=== PATIENT | male | born 1970 ===

== ENCOUNTER 2018-12-04 09:03 | Inpatient (IN) | payer OTHER ==
[2018-12-04] MEDS ORDERED: EPINEPHrine 1 MG/10 ML Abboject SYRINGE ONE (09:15)
[2018-12-04] MEDS ORDERED: Norepinephrine 4 MG/4 ML VIAL ONE ×2 (09:15)
[2018-12-04] MEDS ORDERED: EPINEPHrine 1 MG/ML AMP ONE (09:15)
--- NOTE | 2018-12-04 09:18 | CT ---
CT HEAD WITHOUT CONTRAST: HISTORY: Seizure. COMPARISON: None. FINDINGS: Hemorrhage: Extensive subarachnoid blood along with blood in the ventricular system. Small amount o f subdural blood along the left and right tentorium. There appears to be a 2.8 x 3.5 cm parenchymal hemorrhage centered along the midline of the cerebellum, with hematoma involving both cer ebellar hemispheres, left greater than right. There appears to be subarachnoid blood along the folia of the cerebellum bilaterally. Brain parenchyma: Subtle loss of diffuse cortical orourke-white matter differentiation may have started . There does appear to be effacement of sulci, suggesting diffuse cerebral edema. No midline shift. Basilar cisterns are patent. Ventricular system: Enlarged ventricular system, which may be due to obstruction from a significant amount of blood in the fourth ventricle and due to mass effect from a hematoma involving the midline of the cerebellum. Calvarium: Intact. Sinuses and mastoid air cells: Adequate aeration. IMPRESSION: Extensive intraparenchymal and extraaxial hemorrhage. There is associated obstructive hydrocephalus. There does appear to be edema with diffuse sulcal effacement. The results of the study were discussed with Dr. Ozuna on 12/04/2018 at 9:17 a.m. CODE CR Transcribed Date/Time: 12/04/2018 10:36 AM
[2018-12-04] MEDS ORDERED: Lidocaine 1% w/Epinephrine 1:100K 20 ML VIAL ONE (09:45)
[2018-12-04 09:54] LABS: #Eosinphils 0.1 thou/uL (0.0-0.7); #Lymphocytes 1.2 thou/uL (1.20-3.40); #Monocytes 0.7 thou/uL (0.11-0.59); #Neutrophils 13.7 thou/uL (1.40-6.50); %Basophils 0.1 % (0.0-1.0); %Eosinophils 0.7 % (0.0-10.0); %Lymphocytes 7.5 % (21.0-51.0); %Monocytes 4.7 % (0.0-10.0); %Neutrophils 87.2 % (42.0-75.0); Hemoglobin 14.5 g/dL (14.0-18.0); Mean Corpuscular HGB CONC 34.5 g/dL (32.0-36.0); Mean Corpuscular Hemoglobin 32.7 pg (27.0-31.0); Mean Corpuscular Volume 94.7 fL (78.0-98.0); Mean Platelet Volume 7.5 fL (7.4-10.4); Platelet Count 209 thou/uL (130-400); RBC Distribution Width 11.7 % (11.5-14.5); Red Blood Cell (RBC) Count 4.43 mill/uL (4.70-6.10); White Blood Cell (WBC) Count 15.7 thou/uL (4.8-10.8)
[2018-12-04 09:59] LABS: Bilirubin Negative (Negative); Blood, Urine Negative (Negative); Clarity Clear (Clear); Glucose, Urine (Dipstick) Normal (Negative); Leukocyte Negative Leu/uL (Negative); Nitrite Negative (Negative); Protein, Urine (Dipstick) 100 mg/dL (Neg-Trace); RBC/HPF 0-3 HPF (0-3); Squamous Epithelial None Seen HPF (0-3); Urobilinogen Normal mg/dL (Less than 2); WBC/HPF 0-3 HPF (0-3)
--- NOTE | 2018-12-04 10:05 | RAD ---
XR Chest 1 View Portable HISTORY: Respiratory failure, central line placement COMPARISON: 12/04/2018 at 9:15 AM FINDINGS: There has been interval placement of a left subclavian central line with tip in the project ion of the SVC. No pneumothorax is seen. Remainder the exam is stable.
[2018-12-04 10:10] LABS: Actual Bicarbonate (HCO3a) 22.7 mEq/L (22-28); Analyzer IN Cardio ER; Base Excess (BEa) -8.8 mEq/L (-2.0 to +3.0); Calcium, Ionized 1.18 mmol/L (1.12-1.30); Carboxyhemoglobin (COHb) 0.3 gm% (0.0-3.0); Hemoglobin (Hb) 15.5 g/dL (14.0-18.0); O2 Tension (PaO2) 83.1 mmHg (80.0-100.0); Potassium - ABG Lab 4.29 mmol/L (3.70-5.30)
[2018-12-04 10:11] LABS: ALV-art Gradient 250.075 (0-20); CO2 Tension 75.7 mmHg (35.0-45.0); Puncture Site RB
[2018-12-04] MEDS ORDERED: DOPamine 400 MG/D5W 250 ML 250 ML ONE (10:12)
[2018-12-04 10:16] LABS: ALT (SGPT) 30 U/L (8-55); AST (SGOT) 28 U/L (5-34); Albumin 3.9 g/dL (3.5-5.0); Alkaline Phosphatase 78 U/L (40-150); Anion Gap 11 mmol/L (10-20); BUN (Urea Nitrogen) 10 mg/dL (8.9-20.6); Bilirubin, Total 0.2 mg/dL (0.2-1.2); Calc. Creatinine Clearance 0 mL/min (70-130); Calcium 7.8 mg/dL (7.8-10.44); Carbon Dioxide 24 mmol/L (22-29); Chloride 104 mmol/L (98-107); Estimated GFR-MDRD 63; Glucose 113 mg/dL (70-105); Protein, Total 5.9 g/dL (6.0-8.3); Sodium 135 mmol/L (136-145)
[2018-12-04] MEDS ORDERED: niCARdipine 25 MG in Sodium Chloride 0.9% 250 ML 250 ML IVPB PRN (10:17)
[2018-12-04] MEDS ORDERED: Ondansetron PF 4 MG/2 ML Vial IVP PRN (10:17)
[2018-12-04] MEDS ORDERED: Bisacodyl 10 MG SUPP PR PRN (10:17)
[2018-12-04] MEDS ORDERED: Acetaminophen 325 MG TAB PO PRN (10:17)
[2018-12-04 10:26] LABS: Bacteria/HPF None Seen HPF (None Seen); Sperm/HPF 1+ HPF (None Seen)
--- NOTE | 2018-12-04 10:26 | PRG ---
DATE OF SERVICE: SUBJECTIVE: Mr. Box is a 48-year-old gentleman, who currently resides in the residential. The guards which are present relayed much of the history. They state that he was noted to complain of the worst headache of his life earlier in the day. Subsequent to that time, he was found having a generalized seizure. EMS was activated and he was brought to the emergency room. As part of his transport, he was intubated. At no point in time, did he receive a paralytic nor is he receive any sedatives. Upon arrival, he had a CT examination of the head, which revealed the presence of diffuse intraparenchymal blood within the posterior fossa as well as intraventricular extension with associated obstructive hydrocephalus. He also has some blunting of the orourke-white junctions suggestive of edema. PHYSICAL EXAMINATION: On my exam in the ER, he is intubated. He is on no medications other than IV fluids at this time. His pupils are fixed bilaterally. He has no corneal reflexes nor does he have any oculocephalic reflexes. He is not currently overbreathing the ventilator. He does not move to stimulation. His GCS score was at of 3T and at this current time, he has no discernible brainstem reflexes. PLAN: The plan is to place a ventriculostomy. If he shows any improvement in his exam, we could contemplate a posterior fossa decompression; however, his exam is poor as is his prognosis. Job ID: [id number]
[2018-12-04 10:29] LABS: Acetaminophen Less than 6.0 mcg/mL (10.0-30.0); Alcohol Less than 10 mg/dL (Less than 10); Salicylate Less than 8.0 mg/dL (15.0-30.0)
--- NOTE | 2018-12-04 11:05 | RAD ---
FRONTAL VIEW CHEST: INDICATIONS: Status post intubation. COMPARISON: No prior comparisons. FINDINGS: Endotracheal tube is present with the tip between the thoracic inlet and the jus. There is an ent álvaro catheter traversing below the field of view, at the upper abdomen, to the left of midline. Decr eased volume of the right hemithorax with elevation of the right hemidiaphragm and diffuse interstiti al prominence. Bilateral perihilar opacities are present. The cardiac silhouette is normal in size. Extrinsic artifacts limit detail. IMPRESSION: 1. Supportive tubes, as above. 2. Bilateral perihilar opacities and interstitial opacities that may be on the basis of edema. Elvin elate clinically. Imaging followup may be obtained. POS: CET
[2018-12-04 11:17] LABS: PTT 27.6 SEC (22.9-36.1)
[2018-12-04 11:18] LABS: Prothrombin Time 13.2 SEC (12.0-14.7)
[2018-12-04 11:54] LABS: Amphetamine Not Detected (NotDetected); Barbiturates Screen Not Detected (NotDetected); Benzodiazepine Screen Not Detected (NotDetected); Cocaine Metabolite Screen Not Detected (NotDetected); Medtox Control Line Valid? VALID (VALID); Medtox Reader # READER 4; Methadone Not Detected (NotDetected); Methamphetamine Not Detected (NotDetected); Opiate Screen Not Detected (NotDetected); Oxycodone Screen Not Detected (NotDetected); Phencyclidine (PCP) Not Detected (NotDetected); THC/Cannabinoid Screen Not Detected (NotDetected); Tricyclic Screen Not Detected (NotDetected)
[2018-12-04 11:57] LABS: CKMB 7.3 ng/mL (0-6.6)
--- NOTE | 2018-12-04 13:13 | CON ---
DATE OF CONSULTATION: 12/04/2018 SERVICE: Pulmonary Medicine. REASON FOR CONSULTATION: ICU patient. HISTORY OF PRESENT ILLNESS: The patient is a 48-year-old white male with past medical history significant for some seizure disorder. Ultimately, he was in his usual state of health when apparently had abrupt change in neurologic function. He was witnessed to have a tonoclonic seizure. There was possible aspiration. Either way, he was intubated in the field and brought to the Emergency Department. On arriving here, he apparently had multifocal areas of head bleeding. On presentation, he already demonstrated clinical brain . He cannot provide any additional elements of the history. He has required absolutely no sedation, no paralytics, and no intubating medications. It is my understanding that he has not had any sedation whatsoever since this event began. PAST MEDICAL HISTORY: Unknown. PAST SURGICAL HISTORY: Unknown. SOCIAL HISTORY: Unknown. FAMILY HISTORY: Unknown. ALLERGIES: UNKNOWN. MEDICATIONS: List of his inpatient medications was reviewed. I initiated aspiration coverage for pneumonia. REVIEW OF SYSTEMS: Cannot be obtained as the patient is a clinically brain currently. PHYSICAL EXAMINATION: VITAL SIGNS: Afebrile, pulse 83, respirations 21, saturation 98% on 50% FiO2 and a PEEP of 5. GENERAL: The patient is intubated on no sedation. He is completely nonresponsive. HEENT: Normocephalic and atraumatic. Sclerae white. Conjunctivae pink. Oral mucosa is moist without lesions. He has a ventriculostomy drain in place, which is draining serosanguineous fluid. NECK: Supple. Trachea midline. LUNGS: Good air entry bilaterally. Rhonchi are present. No prolonged expiratory phase or wheezing is appreciated. HEART: Normal rate. Regular. ABDOMEN: Soft, nontender, and nondistended. Bowel sounds are positive. MUSCULOSKELETAL: No cyanosis or clubbing. There is no pitting in the bilateral lower extremities. NEUROLOGIC: He has fixed and dilated pupils. Doll eyes are abnormal. He has no corneal reflexes. I turned the ventilator down to 1 and increased the apnea time to 60 seconds. During that period of time, his pCO2 went from 35 up to 52. He made absolutely no effort at taking a breath. He was then returned to a rate of 21. He does not withdraw from noxious stimuli in all 4 extremities. He does not grimace with a sternal rub. Babinski sign is neutral. LABORATORY DATA: WBC of 15.7, hemoglobin 14.5, and platelets 209,000. INR 1.0. A pH of 7.1, pCO2 of 75, pO2 of 83, and corresponding to a saturation of 92%. Creatinine 1.23 and gently uptrending. Basic metabolic profile and liver function studies are otherwise unremarkable. Troponin is 0.483. Lactate 1.1 and ionized calcium 1.2. Urinalysis is negative. IMAGING STUDIES: 1. Chest x-ray demonstrates left subclavian central venous catheter is in place. It terminates in good position. There is an endotracheal tube, which terminates 3 cm above the level of the jus. The abdomen is significantly distended. There is an enteric catheter coursing midline below the level of the diaphragm and out of the field of view. There is no consolidating changes or effusions, otherwise present. Pulmonary vascular markings are more prominent on the right compared to the left. 2. CT of the brain demonstrates extensive hemorrhage both intraventricular, intraparenchymal, and subarachnoid. Obstructive hydrocephalus is present. ASSESSMENT: 1. Intraparenchymal hemorrhage. 2. Respiratory failure secondary to inability to protect airway. 3. Clinical brain . 4. Seizure. DISCUSSION AND PLAN: We will continue draining from the ventriculostomy drain. I will do a stat EEG to verify the patient is not actively seizing. I will let the dust settle for 24 hours and repeat some laboratories tomorrow morning. If he has not made any significant neurologic change, which I do not expect, over the next 24 hours, we will do an apnea evaluation. If he fails this study, we will declare him to be . Next of kin is going to be notified that he is here. CRITICAL CARE TIME: 30 minutes. Job ID: [id number] MTDD
[2018-12-04 13:52] VITALS: BMI 34.0
[2018-12-04] MEDS ORDERED: CEFAZOLIN 1 GM VIAL SLOW IVP SCH (14:00)
[2018-12-04 14:06] VITALS: TEMP 97.7
[2018-12-04] MEDS: CEFAZOLIN 2 GM in Premix Bag 1 BAG IVPB SCH ×2 (14:24→21:32)
[2018-12-04] MEDS: Piperacillin/Tazobactam 3.375 GM in Sodium Chloride 0.9% 100 ML IVPB SCH ×2 (14:24→20:45)
[2018-12-04] MEDS: Sodium Chloride 0.9% 1,000 ML IV SCH ×2 (14:25→21:33)
[2018-12-04] MEDS ORDERED: Lactated Ringer's 1,000 ML IV SCH ×2 (14:45→17:15)
[2018-12-04] MEDS ORDERED: Levothyroxine 100 MCG SDV SLOW IVP SCH (17:15)
[2018-12-04] MEDS: Norepinephrine 8 MG in Dextrose 5% in Water 242 ML IVPB PRN (17:41)
[2018-12-04] MEDS: Levothyroxine Sodium 400 MCG in Sodium Chloride 0.9% 100 ML IVPB SCH (18:01)
[2018-12-05] MEDS: Levothyroxine Sodium 400 MCG in Sodium Chloride 0.9% 100 ML IVPB SCH ×3 (01:21→09:18)
[2018-12-05] MEDS: Piperacillin/Tazobactam 3.375 GM in Sodium Chloride 0.9% 100 ML IVPB SCH ×2 (02:49→10:30)
[2018-12-05 03:59] LABS: Band 25 % (5-11); Hemoglobin 16.3 g/dL (14.0-18.0); Lymphocytes 5 % (21-51); MDiff Complete? YES; Mean Corpuscular HGB CONC 34.2 g/dL (32.0-36.0); Mean Corpuscular Hemoglobin 32.9 pg (27.0-31.0); Mean Corpuscular Volume 96.2 fL (78.0-98.0); Mean Platelet Volume 7.2 fL (7.4-10.4); Monocytes 7 % (0-10); Neutrophil 63 % (42-75); Platelet Count 222 thou/uL (130-400); Platelet Morphology Comment Appears Adequate; RBC Distribution Width 11.9 % (11.5-14.5); Red Blood Cell (RBC) Count 4.97 mill/uL (4.70-6.10)
[2018-12-05 04:17] LABS: Anion Gap 13 mmol/L (10-20); BUN (Urea Nitrogen) 11 mg/dL (8.9-20.6); Calc. Creatinine Clearance 84 mL/min (70-130); Calcium 9.1 mg/dL (7.8-10.44); Carbon Dioxide 22 mmol/L (22-29); Chloride 121 mmol/L (98-107); Estimated GFR-MDRD 56; Glucose 155 mg/dL (70-105); Potassium 4.5 mmol/L (3.5-5.1); Sodium 151 mmol/L (136-145)
[2018-12-05] MEDS: CEFAZOLIN 2 GM in Premix Bag 1 BAG IVPB SCH (05:53)
[2018-12-05] MEDS: Norepinephrine 8 MG in Dextrose 5% in Water 242 ML IVPB PRN (05:53)
[2018-12-05 07:27] VITALS: BP 121/91
[2018-12-05] MEDS ORDERED: Dextrose 5% in Water 1,000 ML IV SCH (08:30)
[2018-12-05] MEDS ORDERED: Sodium Phosphate 30 MMOL in Sodium Chloride 0.9% 250 ML 250 ML IVPB SCH (08:30)
[2018-12-05] MEDS ORDERED: Hydrocortisone Sod Succ/PF 100 mg/2 ml Vial IVP SCH (09:00)
[2018-12-05] MEDS: Lactated Ringer's 1,000 ML IV SCH (09:21)
[2018-12-05] MEDS ORDERED: Levothyroxine Sodium 400 MCG in Sodium Chloride 0.9% 100 ML IVPB SCH (09:23)
[2018-12-05 09:44] LABS: Actual Bicarbonate (HCO3a) 22.8 mEq/L (22-28); Base Excess (BEa) -4.5 mEq/L (-2.0 to +3.0); CO2 Tension 49.7 mmHg (35.0-45.0); Calcium, Ionized 1.29 mmol/L (1.12-1.30); Carboxyhemoglobin (COHb) 1.2 gm% (0.0-3.0); Hemoglobin (Hb) 16.3 g/dL (14.0-18.0); Potassium - ABG Lab 4.29 mmol/L (3.70-5.30); pH, Arterial 7.28 (7.35-7.45)
[2018-12-05 09:44] LABS: Actual Bicarbonate (HCO3a) 24.5 mEq/L (22-28); Base Excess (BEa) -5.7 mEq/L (-2.0 to +3.0); Calcium, Ionized 1.32 mmol/L (1.12-1.30); Carboxyhemoglobin (COHb) 1.1 gm% (0.0-3.0); Hemoglobin (Hb) 15.8 g/dL (14.0-18.0); O2 Tension (PaO2) 223.7 mmHg (80.0-100.0); Potassium - ABG Lab 4.11 mmol/L (3.70-5.30)
[2018-12-05 09:44] LABS: Actual Bicarbonate (HCO3a) 19.8 mEq/L (22-28); Base Excess (BEa) -5.9 mEq/L (-2.0 to +3.0); Calcium, Ionized 1.27 mmol/L (1.12-1.30); Carboxyhemoglobin (COHb) 1.4 gm% (0.0-3.0); Hemoglobin (Hb) 15.7 g/dL (14.0-18.0); O2 Tension (PaO2) 217.4 mmHg (80.0-100.0); Potassium - ABG Lab 4.23 mmol/L (3.70-5.30); pH, Arterial 7.31 (7.35-7.45)
[2018-12-05 09:45] LABS: Puncture Site ALINE
[2018-12-05 09:46] LABS: ALV-art Gradient 151.075 (0-20)
[2018-12-05 09:48] LABS: Puncture Site ALINE
[2018-12-05 09:49] LABS: ALV-art Gradient 402.675 (0-20); CO2 Tension 69.3 mmHg (35.0-45.0); Puncture Site ALINE; pH, Arterial 7.17 (7.35-7.45)
--- NOTE | 2018-12-05 10:05 | PRG ---
DATE OF SERVICE: 12/05/2018 SERVICE: Pulmonary Medicine. INTERVAL HISTORY: Overnight, the patient's urine output picked up. He went into diabetes insipidus. We are in the process of correcting that. We will give him a couple liters of fluid, and starting vasopressin. He was started on some thyroid medication overnight to help with the low blood pressure per protocol. He cannot provide any additional elements of the history. He has not received any paralytics or sedating medications at any point during this hospital stay or before the hospital stay. Mentation has not improved in the least. PHYSICAL EXAMINATION: VITAL SIGNS: Afebrile, pulse 100, blood pressure 132/60, respirations 24, saturation 100% on 100% FiO2 and a PEEP of 5. GENERAL: The patient is intubated. He is nonresponsive. HEENT: Normocephalic. There is a ventriculostomy drain in place. Oral mucosa is moist without lesions. LUNGS: Very good air entry. There is a prolonged expiratory phase with polyphonic wheezing. HEART: Normal rate, regular. ABDOMEN: Soft, nontender, and nondistended. Bowel sounds are positive. MUSCULOSKELETAL: No cyanosis or clubbing. There is no pitting in the bilateral lower extremities. NEUROLOGIC: Please refer to brain analysis. IMAGING STUDIES: EEG is completely flat. LABORATORY DATA: Sodium 151. Basic metabolic profile is otherwise unremarkable. glucose 155, phosphorus 2.0, and magnesium 2.1. Urinalysis is unremarkable. Urine drug screen is negative. Blood cultures x2 are negative to date. ASSESSMENT: 1. Intraparenchymal hemorrhage. 2. Respiratory failure secondary to inability to protect airway. 3. Clinical brain with flat EEG. 4. Seizure. DISCUSSION AND PLAN: Clinically, the patient has brain . As such, we will be proceeding with an apnea evaluation. If this is abnormal, we will declare him . I am putting in an arterial line because this requires multiple ABGs in a very short period of time. I will initiate D5 water, start vasopressin drip, continue thyroid drip, initiate stress doses of steroids, and schedule nebulized medications for suspected bronchospasm. We will continue antibiotics and other supportive care. Pulmonary/Critical Care will continue to follow along if the apnea evaluation is unremarkable. Critical care time: 30 minutes. Job ID: [id number] [facility]
[2018-12-05 15:20] LABS: Base Excess-Venous -5.4 mmol/L (-2.0 to 3.0); CO2 Tension (PvCO2) 81.3 mmHg (40.0-50.0); Hematocrit 13.7 % (42.0-52.0); vO2 Saturation-calc 89.7 % (60.0-85.0)
[2018-12-05 15:21] LABS: Chloride 104 mmol/L (98-107); Glucose 113 mg/dL (70-105); Lactate 0.77 mmol/L (0.50-2.20); Potassium 4.7 mmol/L (3.5-5.1); Sodium 137 mmol/L (138-145); T. Carbon Dioxide 28.5 mmol/L (22.0-28.0)
--- NOTE | 2018-12-05 17:44 | OP ---
DATE OF PROCEDURE: 12/05/2018 SERVICE: Pulmonary Medicine. PROCEDURE PERFORMED: Fiberoptic bronchoscopy with: 1. Visual airway inspection. 2. Bronchial washing from the right lung and left lung. PREPROCEDURE DIAGNOSIS: Lung organ donation evaluation. POSTOPERATIVE DIAGNOSIS: Lung organ donation evaluation. MEDICATIONS USED: None. DESCRIPTION OF PROCEDURE: A diagnostic fiberoptic bronchoscope was introduced through the 7.0 endotracheal tube. The bronchoscope was advanced into the trachea, where tracheobronchial tree inspection was carried out with clear identification of the right upper lobe, right middle lobe, right lower lobe, left upper lobe, lingula, and left lower lobe. Anatomy was normal to the segmental level. Secretions were moderate to heavy, but they were fairly thin. They had a purulent color to them. They were easily suctioned. After suctioning the secretions, there were no additional secretions that welled up distally. The trachea and mainstem bronchi appeared normal. There was no friability to the mucosal membranes. There was some anthracotic pigmentation scattered throughout bilateral airways. A bronchial washing was obtained from the right lung. A separate bronchial washing was obtained from the left lung. The bronchoscope was removed from the patient. FINDINGS: 1. Anthracotic pigmentation of mucous membranes. 2. Moderate to heavy purulent secretions were present, but they were thin and easily suctioned. 3. No endobronchial disease was identified. SPECIMENS OBTAINED: 1. Bronchial washing from right lung. 2. Bronchial washing from left lung. COMPLICATIONS: None. ESTIMATED BLOOD LOSS: None FLUOROSCOPY TIME: None. DISPOSITION: The patient will remain on mechanical ventilation in the ICU. Job ID: [id number]
--- NOTE | 2018-12-05 23:07 | OP ---
DATE OF PROCEDURE: 12/05/2018 SERVICE: Pulmonary Medicine. PROCEDURE PERFORMED: Left-sided radial artery catheter placement. MEDICATIONS USED: None. INDICATIONS: Need for frequent ABGs/blood draws. DESCRIPTION OF PROCEDURE: Time-out was performed by the procedure team and patient. The patient was positively identified using name and date of . The procedure site was marked. Vital sign monitoring was accomplished by noninvasive hemodynamic monitoring, pulse oximetry, and telemetry. With the patient in supine position, the left wrist was placed in extended position and radial artery pulse was palpated. The skin was prepped and draped in sterile fashion. The radial artery was cannulated under direct palpation on the second attempt with return of bright red, pulsatile blood. The arterial catheter was inserted without difficulty and sutured in place with 3-0 silk suture x1. The catheter was attached to monitor and appropriate arterial waveform was noted. A sterile dressing was applied and the procedure was terminated. ESTIMATED BLOOD LOSS: 2 mL. COMPLICATIONS: None. Job ID: [id number]
--- NOTE | 2018-12-06 15:30 | DIS ---
DATE OF ADMISSION: 12/04/2018 DATE OF DISCHARGE: 12/05/2018 SUMMARY Mr. Box was admitted to [facility] on December 04, 2018, by Dr. Wander Rodríguez. ADMISSION DIAGNOSES: Coma and intracerebral hemorrhage and intraventricular hemorrhage as well as obstructive hydrocephalus. HOSPITAL COURSE: Mr. Box' hospital course was a tragic story of a gentleman, who came in with hypertensive crisis, seizure, and massive intracerebral hemorrhage with intraventricular hemorrhage and obstructive hydrocephalus. He was admitted to the ICU and never had return to consciousness from pernell coma upon arrival. His neurologic exam lacked all brainstem reflexes from the time of presentation and throughout his stay. Ventriculostomy was placed during this time for obstructive hydrocephalus, but again neurologic symptoms never improved. He ultimately was pronounced to be brain on December 05, 2018, and failed apnea test with Dr. Carroll. The diagnoses related to expiration, intracerebral hemorrhage, coma, and brain . Job ID: [id number]
--- NOTE | 2018-12-12 09:48 | EEG ---
Referring Physician: Irene BAH EEG # [id number] TEST TYPE: STAT PORTABLE INPATIENT REPORT: AN EEG USING THE INTERNATIONAL TEN-TWENTY SYSTEM OF ELECTRODE PLACEMENT WAS PERFORMED. The background is consistent with electrocerebral silence. The background was unresponsive to photic stimulation. IMPRESSION: THIS STUDY APPEARS CONSISTENT WITH BRAIN . CLINICAL CORRELATION IS INDICATED. Planning Aide: YUKI Ingredient Handler: [email or web address].DINORA [email or web address]
--- NOTE | 2018-12-15 01:02 | EKG ---
Test Reason : Blood Pressure : / mmHG Vent. Rate : 117 BPM Atrial Rate : 117 BPM P-R Int : 146 ms QRS Dur : 080 ms QT Int : 324 ms P-R-T Axes : 072 037 075 degrees QTc Int : 451 ms Sinus tachycardia Possible Left atrial enlargement Nonspecific ST abnormality Abnormal ECG Confirmed by JEREL SNIDER ([id number]), social media editor HERBERTH KUMAR ([id number]) on 12/15/2018 1:01:45 AM Referred By: Confirmed By:JEREL SNIDER
== END 2018-12-05 09:23 | disposition expired | DRG 23 ==
LOC: EDBD 09:03 → ERS 09:03 → SDC 09:46 → CCU 10:21
PROVIDERS: ADMIT Neurological Surgery; ATTEND Neurological Surgery
PROC: 009630Z Drainage of Cerebral Ventricle with Drainage Device, Percutaneous Approach (ICD-10-PCS; principal; 2018-12-04)
PROC: 4A023N7 Measurement of Cardiac Sampling and Pressure, Left Heart, Percutaneous Approach (ICD-10-PCS; 2018-12-04)
PROC: B2111ZZ Fluoroscopy of Multiple Coronary Arteries using Low Osmolar Contrast (ICD-10-PCS; 2018-12-04)
PROC: 0B9M8ZZ Drainage of Bilateral Lungs, Via Natural or Artificial Opening Endoscopic (ICD-10-PCS; 2018-12-05)
PROC: 03HC33Z Insertion of Infusion Device into Left Radial Artery, Percutaneous Approach (ICD-10-PCS; 2018-12-05)
DX: I61.5 Nontraumatic intracerebral hemorrhage, intraventricular (principal); J96.90 Respiratory failure, unspecified, unspecified whether with hypoxia or hypercapnia; G91.1 Obstructive hydrocephalus; G40.909 Epilepsy, unspecified, not intractable, without status epilepticus; E78.5 Hyperlipidemia, unspecified; I10 Essential (primary) hypertension; J44.9 Chronic obstructive pulmonary disease, unspecified; F31.9 Bipolar disorder, unspecified; Z88.8 Allergy status to other drugs, medicaments and biological substances; Z79.84 Long term (current) use of oral hypoglycemic drugs; Z79.899 Other long term (current) drug therapy; E11.9 Type 2 diabetes mellitus without complications
CPT/HCPCS: 36415; 36416; 36556; 51702; 70450; 71045; 80048; 80053; 80306; 80307; 81003; 81015; 82330; 82553; 82803; 82805; 83605; 83735; 84100; 84484; 85025; 85610; 85730; 86850; 86900; 86901; 87040; 87086; 93005; 94002; 94003; 94640; 94760; 95816; 95819; 96365; 96366; 96367; 96374; 96375; 99292; C1769; J0171; J0690; J1265; J1720; J2001; J2543; J3490; J7050; J7070; J7620

== ENCOUNTER 2018-12-05 09:23 | Day surgery (SDC) | payer OTHER ==
[2018-12-05 11:34] LABS: Actual Bicarbonate (HCO3a) 22.7 mEq/L (22-28); Calcium, Ionized 1.26 mmol/L (1.12-1.30); Carboxyhemoglobin (COHb) 0.8 gm% (0.0-3.0); Hemoglobin (Hb) 16.4 g/dL (14.0-18.0); Potassium - ABG Lab 3.67 mmol/L (3.70-5.30); pH, Arterial 7.34 (7.35-7.45)
[2018-12-05 11:36] LABS: O2 Tension (PaO2) 59.9 mmHg (80.0-100.0); Puncture Site ALINE
[2018-12-05] MEDS ORDERED: Norepinephrine 8 MG in Dextrose 5% in Water 242 ML IVPB PRN (11:43)
[2018-12-05] MEDS ORDERED: Levothyroxine Sodium 400 MCG in Sodium Chloride 0.9% 100 ML IVPB SCH ×2 (11:45→12:30)
[2018-12-05] MEDS ORDERED: Albumin 25% 25 GM/100 ML BOT IVPB SCH (12:00)
[2018-12-05] MEDS ORDERED: Albuterol Sulfate 2.5 mg/0.5 ml Neb NEB PRN (12:21)
[2018-12-05] MEDS ORDERED: Naloxone HCl 2 mg/2 ml Syringe IV SCH (12:30)
[2018-12-05] MEDS ORDERED: methylPREDNISolone Sod Succ 2 GM in Sodium Chloride 0.9% 100 ML IVPB SCH (12:30)
[2018-12-05] MEDS ORDERED: Vasopressin 20 UNIT in Sodium Chloride 0.9% 250 ML 250 ML IV SCH (12:30)
[2018-12-05] MEDS: Phytonadione 10 MG in Sodium Chloride 0.9% 50 ML IVPB SCH ×2 (12:55→17:14)
[2018-12-05] MEDS ORDERED: niCARdipine 25 MG in Sodium Chloride 0.9% 250 ML 240 ML IVPB SCH (13:00)
[2018-12-05 13:12] LABS: Hemoglobin 13.9 g/dL (14.0-18.0); Mean Corpuscular HGB CONC 33.8 g/dL (32.0-36.0); Mean Corpuscular Hemoglobin 32.1 pg (27.0-31.0); Mean Corpuscular Volume 94.9 fL (78.0-98.0); Mean Platelet Volume 7.7 fL (7.4-10.4); Platelet Count 178 thou/uL (130-400); Red Blood Cell (RBC) Count 4.35 mill/uL (4.70-6.10); White Blood Cell (WBC) Count 17.6 thou/uL (4.8-10.8)
[2018-12-05 13:14] LABS: INR-International Normal Ratio 1.3; Prothrombin Time 16.6 SEC (12.0-14.7)
[2018-12-05 13:15] LABS: PTT 34.1 SEC (22.9-36.1)
[2018-12-05] MEDS: Piperacillin/Tazobactam 3.375 GM in Sodium Chloride 0.9% 100 ML IVPB SCH ×2 (13:29→17:32)
[2018-12-05 13:32] LABS: ALT (SGPT) 19 U/L (8-55); AST (SGOT) 19 U/L (5-34); Alkaline Phosphatase 51 U/L (40-150); Anion Gap 13 mmol/L (10-20); BUN (Urea Nitrogen) 9 mg/dL (8.9-20.6); Band 55 % (5-11); Bilirubin, Total 0.4 mg/dL (0.2-1.2); Calc. Creatinine Clearance 0 mL/min (70-130); Calcium 9.3 mg/dL (7.8-10.44); Carbon Dioxide 22 mmol/L (22-29); Chloride 126 mmol/L (98-107); Eosinophils 2 % (0-10); Estimated GFR-MDRD 64; Gamma GT (GGT) 64 U/L (12-64); Globulin 1.8 g/dL (2.4-3.5); Glucose 161 mg/dL (70-105); Lipase 8 U/L (8-78); Lymphocytes 4 % (21-51); MDiff Complete? YES; Magnesium 2.2 mg/dL (1.6-2.6); Metamyelocyte 5 % (0-0); Monocytes 2 % (0-10); Neutrophil 26 % (42-75); Phosphorus 3.3 mg/dL (2.3-4.7); Platelet Morphology Comment Appears Adequate; Polychromasia SLIGHT = 2-3 cells (100X) (0-2/hpf); Potassium 3.7 mmol/L (3.5-5.1); Protein, Total 6.8 g/dL (6.0-8.3); Reactive Lymphocytes 6 % (0-10); Sodium 157 mmol/L (136-145); Tear Drops SLIGHT = 2-5 cells (100X) (0-1/hpf)
[2018-12-05 13:33] LABS: CKMB 8.8 ng/mL (0-6.6); Troponin I 0.715 ng/mL (< 0.028)
[2018-12-05 13:44] LABS: Bacteria/HPF None Seen HPF (None Seen); Bilirubin Negative (Negative); Blood, Urine Negative (Negative); Clarity Clear (Clear); Glucose, Urine (Dipstick) Normal (Negative); Leukocyte Negative Leu/uL (Negative); Nitrite Negative (Negative); Protein, Urine (Dipstick) Negative (Neg-Trace); RBC/HPF 0-3 HPF (0-3); Squamous Epithelial 0-3 HPF (0-3); Urobilinogen Normal mg/dL (Less than 2); WBC/HPF 0-3 HPF (0-3)
--- NOTE | 2018-12-05 13:55 | RAD ---
Frontal radiograph chest: 12/05/2018 at 12:53 PM COMPARISON: 11/26/2018 at 9:35 AM HISTORY: Organ donation management FINDINGS: Stable endotracheal tube, nasogastric tube, and right-sided vascular catheter. Supine imagi ng provided, limiting assessment for pneumothorax and pleural fluid. There is dense opacity in bilateral perihilar regions and both lung bases, right greater than left, suggesting airspace disease , volume loss, and/or pleural fluid. Aeration has worsened significantly within the perihilar regions and both lung bases when compared to the prior exam. IMPRESSION: Dense pleural and parenchymal opacity in the perihilar regions and both lung bases, new. Findings may be on the basis of pulmonary edema, infectious pneumonitis, or aspiration. Lines and tubes as detailed above.
[2018-12-05] MEDS ORDERED: Lidocaine 1% (PF) 30 ML VIAL ONE (13:57)
[2018-12-05] MEDS ORDERED: Iopamidol 370 76% 100 ML VIAL ONE (15:10)
[2018-12-05] MEDS ORDERED: Acetaminophen/Codeine 30-300mg Tablet PO PRN ×2 (15:27)
[2018-12-05] MEDS ORDERED: Sodium Chloride 0.9% 200 ML IV PRN (15:27)
[2018-12-05] MEDS ORDERED: Nitroglycerin 0.4 MG TAB (25 Tab Bottle) SL PRN (15:27)
[2018-12-05] MEDS ORDERED: Dextrose 5% in Water 1,000 ML IV SCH (15:45)
[2018-12-05 15:57] VITALS: BP 155/83
[2018-12-05] MEDS ORDERED: Potassium Chloride 20 MEQ in Premix Bag 1 BAG IVPB SCH ×2 (16:00→19:45)
[2018-12-05] MEDS ORDERED: Magnesium 2 GM/50 ML 2 GM in Premix Bag 1 BAG IVPB SCH (16:00)
[2018-12-05] MEDS ORDERED: HUMULIN R 100 UNITS in Sodium Chloride 0.9% 100 ML IVPB SCH (16:00)
[2018-12-05 16:01] LABS: Actual Bicarbonate (HCO3a) 23.2 mEq/L (22-28); Base Excess (BEa) -3.4 mEq/L (-2.0 to +3.0); CO2 Tension 47.5 mmHg (35.0-45.0); Calcium, Ionized 1.26 mmol/L (1.12-1.30); Carboxyhemoglobin (COHb) 0.5 gm% (0.0-3.0); Hemoglobin (Hb) 14.8 g/dL (14.0-18.0); O2 Tension (PaO2) 362.1 mmHg (80.0-100.0); Potassium - ABG Lab 3.32 mmol/L (3.70-5.30); Puncture Site ALINE; pH, Arterial 7.31 (7.35-7.45)
[2018-12-05 16:02] LABS: ALV-art Gradient 291.525 (0-20)
[2018-12-05] MEDS ORDERED: Phytonadione 10 MG in Sodium Chloride 0.9% 50 ML IVPB SCH (17:00)
[2018-12-05 18:22] LABS: #Lymphocytes 0.6 thou/uL (1.20-3.40); #Monocytes 0.2 thou/uL (0.11-0.59); %Basophils 0.1 % (0.0-1.0); %Eosinophils 0.2 % (0.0-10.0); %Lymphocytes 3.6 % (21.0-51.0); %Monocytes 1.4 % (0.0-10.0); %Neutrophils 94.7 % (42.0-75.0); Hemoglobin 14.1 g/dL (14.0-18.0); Mean Corpuscular HGB CONC 34.5 g/dL (32.0-36.0); Mean Corpuscular Hemoglobin 33.1 pg (27.0-31.0); Mean Platelet Volume 7.4 fL (7.4-10.4); Platelet Count 170 thou/uL (130-400); Red Blood Cell (RBC) Count 4.26 mill/uL (4.70-6.10); White Blood Cell (WBC) Count 15.8 thou/uL (4.8-10.8)
[2018-12-05 18:26] LABS: INR-International Normal Ratio 1.3; PTT 33.6 SEC (22.9-36.1); Prothrombin Time 16.5 SEC (12.0-14.7)
[2018-12-05 18:42] LABS: ALT (SGPT) 19 U/L (8-55); AST (SGOT) 19 U/L (5-34); Albumin 4.8 g/dL (3.5-5.0); Alkaline Phosphatase 53 U/L (40-150); Anion Gap 12 mmol/L (10-20); BUN (Urea Nitrogen) 8 mg/dL (8.9-20.6); Bilirubin, Total 0.5 mg/dL (0.2-1.2); Calc. Creatinine Clearance 0 mL/min (70-130); Calcium 9.7 mg/dL (7.8-10.44); Carbon Dioxide 23 mmol/L (22-29); Chloride 124 mmol/L (98-107); Estimated GFR-MDRD 62; Globulin 2.3 g/dL (2.4-3.5); Glucose 185 mg/dL (70-105); Phosphorus 2.5 mg/dL (2.3-4.7); Potassium 3.5 mmol/L (3.5-5.1); Protein, Total 7.1 g/dL (6.0-8.3); Sodium 155 mmol/L (136-145)
[2018-12-05] MEDS ORDERED: PHENYLEPHRINE HCL IVPB SCH (19:00)
[2018-12-05] MEDS ORDERED: SODIUM CHLORIDE 0.9% IVPB SCH (19:00)
--- NOTE | 2018-12-05 20:21 | CT ---
CT thorax noncontrast CT abdomen noncontrast CT pelvis noncontrast: 12/05/2018 HISTORY: 48-year-old male with brain . Organ donor harvest evaluation. FINDINGS: Endotracheal tube with distal tip at mid thoracic trachea. Large consolidation of right lower lobe wi th air bronchogram. Small consolidation at posterior medial base of left lower lobe. Large regions of severe nodular interstitial infiltrates involving much of the right upper lobe and m ildly involving right middle lobe. No pneumothorax or pleural effusion. No thoracic aortic aneurysm. No cardiomegaly or pericardial effusion. Esophagogastric tube curled in fundus of stomach. Decompressed stomach. Within the limitations of a n oncontrast scan, no abnormality identified involving abdominal aorta, adrenals, kidneys, liver, or spleen. No small bowel dilation. IV contrast material in nondilated bilateral renal collecting system s and ureter. Can catheter within decompressed urinary bladder. Gas in the lumen of the bladder, presumably from the Can catheter. Hematoma-infiltrate at right groin. Lipoma in muscle anterior to right hip. Tiny amount of free fluid within the dependent portion of the pelvic cavity. No colonic diverticuliti s. Suture line at tip of cecum. IMPRESSION: 1. Large right lower lobe consolidation: Pneumonia versus aspiration pneumonia. 2. Small consolidation in left lower lobe: Pneumonia versus aspiration pneumonia. 3. Severe nodular infiltrates throughout right upper lobe: Pneumonia. 4. Status post appendectomy. 5. No gross abnormality identified, within the limitations of a noncontrast scan, of intra-abdominal organs. 6. Hematoma at right groin and excreted contrast material in the kidneys and ureters. Perhaps the pat ient has had a recent catheter angiogram. Recommend correlation with history.
[2018-12-05] MEDS ORDERED: Sodium Chloride 0.45% 1,000 ML IV SCH (20:45)
[2018-12-05] MEDS ORDERED: Lactated Ringer's 1,000 ML IV SCH (23:15)
[2018-12-05 23:42] LABS: Actual Bicarbonate (HCO3a) 23.4 mEq/L (22-28); Base Excess (BEa) -2.7 mEq/L (-2.0 to +3.0); CO2 Tension 45.3 mmHg (35.0-45.0); Calcium, Ionized 1.27 mmol/L (1.12-1.30); Hemoglobin (Hb) 14.2 g/dL (14.0-18.0); O2 Tension (PaO2) 368.1 mmHg (80.0-100.0); Potassium - ABG Lab 3.43 mmol/L (3.70-5.30); pH, Arterial 7.33 (7.35-7.45)
[2018-12-05 23:54] LABS: ALV-art Gradient 288.275 (0-20); Puncture Site LINE
[2018-12-06 00:01] LABS: INR-International Normal Ratio 1.3; PTT 32.7 SEC (22.9-36.1); Prothrombin Time 16.4 SEC (12.0-14.7)
[2018-12-06] MEDS: Piperacillin/Tazobactam 3.375 GM in Sodium Chloride 0.9% 100 ML IVPB SCH ×2 (00:01→05:56)
[2018-12-06 00:21] LABS: ALT (SGPT) 19 U/L (8-55); AST (SGOT) 17 U/L (5-34); Albumin 4.7 g/dL (3.5-5.0); Alkaline Phosphatase 56 U/L (40-150); Anion Gap 12 mmol/L (10-20); BUN (Urea Nitrogen) 7 mg/dL (8.9-20.6); Band 29 % (5-11); Bilirubin, Total 0.5 mg/dL (0.2-1.2); Calc. Creatinine Clearance 0 mL/min (70-130); Carbon Dioxide 24 mmol/L (22-29); Chloride 121 mmol/L (98-107); Estimated GFR-MDRD 65; Globulin 2.3 g/dL (2.4-3.5); Glucose 140 mg/dL (70-105); Hemoglobin 13.9 g/dL (14.0-18.0); Lymphocytes 4 % (21-51); MDiff Complete? YES; Magnesium 2.4 mg/dL (1.6-2.6); Mean Corpuscular HGB CONC 33.8 g/dL (32.0-36.0); Mean Corpuscular Hemoglobin 32.2 pg (27.0-31.0); Mean Corpuscular Volume 95.4 fL (78.0-98.0); Mean Platelet Volume 7.6 fL (7.4-10.4); Monocytes 4 % (0-10); Neutrophil 63 % (42-75); Phosphorus 2.1 mg/dL (2.3-4.7); Platelet Count 171 thou/uL (130-400); Potassium 3.4 mmol/L (3.5-5.1); RBC Distribution Width 12.3 % (11.5-14.5); Sodium 154 mmol/L (136-145); White Blood Cell (WBC) Count 20.3 thou/uL (4.8-10.8)
[2018-12-06] MEDS ORDERED: Potassium Phosphate 20 MMOL in Sodium Chloride 0.9% 250 ML 250 ML IVPB SCH ×2 (01:45→08:15)
[2018-12-06] MEDS: Potassium Chloride 20 MEQ in Premix Bag 1 BAG IVPB SCH ×2 (02:00→02:54)
[2018-12-06] MEDS ORDERED: Metoprolol Tartrate 5 MG/5 ML VIAL IVP SCH (02:00)
[2018-12-06] MEDS: Albuterol Sulfate 2.5 mg/3 ml Neb NEB SCH ×2 (02:18→07:13)
[2018-12-06 06:01] LABS: Bacteria/HPF None Seen HPF (None Seen); Bilirubin Negative (Negative); Blood, Urine Trace (Negative); Clarity Clear (Clear); Glucose, Urine (Dipstick) Normal (Negative); Leukocyte Negative Leu/uL (Negative); Nitrite Negative (Negative); Protein, Urine (Dipstick) 10 mg/dL (Neg-Trace); RBC/HPF 0-3 HPF (0-3); Squamous Epithelial None Seen HPF (0-3); Urobilinogen Normal mg/dL (Less than 2); WBC/HPF 0-3 HPF (0-3)
[2018-12-06 07:08] LABS: Hemoglobin 14.4 g/dL (14.0-18.0); Mean Corpuscular HGB CONC 33.4 g/dL (32.0-36.0); Mean Corpuscular Hemoglobin 32.2 pg (27.0-31.0); Mean Corpuscular Volume 96.5 fL (78.0-98.0); Mean Platelet Volume 7.6 fL (7.4-10.4); Platelet Count 172 thou/uL (130-400); RBC Distribution Width 12.3 % (11.5-14.5); Red Blood Cell (RBC) Count 4.47 mill/uL (4.70-6.10); White Blood Cell (WBC) Count 21.1 thou/uL (4.8-10.8)
[2018-12-06 07:14] LABS: Hemoglobin A1c 5.6 % (4.0-6.0)
[2018-12-06 07:18] LABS: INR-International Normal Ratio 1.3
[2018-12-06 07:20] LABS: Actual Bicarbonate (HCO3a) 22.2 mEq/L (22-28); Base Excess (BEa) -3.6 mEq/L (-2.0 to +3.0); CO2 Tension 42.6 mmHg (35.0-45.0); Calcium, Ionized 1.29 mmol/L (1.12-1.30); Hemoglobin (Hb) 14.8 g/dL (14.0-18.0); O2 Tension (PaO2) 440.1 mmHg (80.0-100.0); Potassium - ABG Lab 3.61 mmol/L (3.70-5.30); pH, Arterial 7.33 (7.35-7.45)
[2018-12-06 07:21] LABS: Puncture Site LINE
[2018-12-06 07:27] LABS: Phosphorus 2.2 mg/dL (2.3-4.7)
[2018-12-06 07:33] LABS: ALT (SGPT) 20 U/L (8-55); AST (SGOT) 16 U/L (5-34); Albumin 4.8 g/dL (3.5-5.0); Alkaline Phosphatase 66 U/L (40-150); Anion Gap 10 mmol/L (10-20); BUN (Urea Nitrogen) 7 mg/dL (8.9-20.6); Bilirubin, Total 0.4 mg/dL (0.2-1.2); Calc. Creatinine Clearance 0 mL/min (70-130); Calcium 10.4 mg/dL (7.8-10.44); Carbon Dioxide 25 mmol/L (22-29); Chloride 119 mmol/L (98-107); Estimated GFR-MDRD 78; Globulin 2.7 g/dL (2.4-3.5); Glucose 82 mg/dL (70-105); Magnesium 2.4 mg/dL (1.6-2.6); Potassium 3.4 mmol/L (3.5-5.1); Protein, Total 7.5 g/dL (6.0-8.3); Sodium 151 mmol/L (136-145)
[2018-12-06] MEDS ORDERED: Potassium Chloride 40 MEQ/100 ML PREMIX BAG ONE (07:35)
[2018-12-06] MEDS ORDERED: Potassium Chloride 40 MEQ in Premix Bag 1 BAG IVPB SCH (07:45)
[2018-12-06 07:59] LABS: CKMB 4.1 ng/mL (0-6.6)
[2018-12-06 08:04] LABS: Band 38 % (5-11); Lymphocytes 10 % (21-51); MDiff Complete? YES; Monocytes 1 % (0-10); Neutrophil 51 % (42-75); Platelet Morphology Comment Appears Adequate; RBC Morphology Normal
--- NOTE | 2018-12-06 08:21 | RAD ---
Frontal radiograph chest: 12/06/2018 COMPARISON: 12/05/2018 HISTORY: Fever FINDINGS: Blunting of the costophrenic angle on the right suggests a small right pleural effusion. Th ere is airspace disease in the right perihilar region/right lung base, slightly improved. Aeration within the left base is improved when compared to the prior exam. No pneumothorax is seen. Stable endotracheal tube, nasogastric tube, and left subclavian vascular catheter IMPRESSION: Pleural and parenchymal opacity within the right lung base as above. Aeration within the lung bases has improved since the prior exam. Lines and tubes as above.
== END 2018-12-06 09:09 | disposition expired ==
LOC: SDC 09:23 → CCU 10:56 → SDC 12-06 09:09
DX: Z00.5 Encounter for examination of potential donor of organ and tissue (principal); Z88.8 Allergy status to other drugs, medicaments and biological substances
CPT/HCPCS: 36415; 36416; 71045; 71250; 74177; 80053; 81001; 81003; 81015; 82150; 82553; 82805; 82977; 83036; 83690; 83735; 84100; 84484; 85025; 85610; 85730; 87070; 87205; 93005; 93010; 93306; 93460; 94002; 94003; 94640; 94667; 94668; J1644; J1815; J2001; J2310; J2370; J2543; J2597; J2930; J3430; J3475; J3480; J3490; J7050; J7611; P9047; Q9967